=== PATIENT | female | born 1985 | race African-American/Black ===

== ENCOUNTER 2017-05-01 11:06 | Inpatient (IN) ==
[2017-05-01 15:21] LABS: MANUAL DIFF NEEDED? NO
[2017-05-01 15:25] LABS: BASO% 0.3 % (0.0-0.8); EOS# 0.02 X1000 (0.0-0.7); EOS% 0.3 % (0.0-10.0); HEMATOCRIT 39.1 % (37.0-47.0); HEMOGLOBIN 13.4 g/dL (12.0-16.0); LYMPH# 0.83 X1000 (1.2-3.4); LYMPH% 13.4 % (20.5-51.1); MCH 28.3 PG (27-31); MCHC 34.3 g/dL (33-37); MCV 82.5 FL (81-99); MONO# 0.73 X1000 (0.11-0.59); MONO% 11.8 % (1.7-9.3); MPV 11.1 FL (7.4-10.4); NEUT% 74.2 % (42.2-75.2); PLT 227 X1000 (130-400); RBC 4.74 XMIL (4.2-5.4)
[2017-05-01 15:31] LABS: INR 1.2; PROTIME 12.7 Seconds (9.2-11.7)
[2017-05-01 15:49] LABS: AGAP 17; ALBUMIN 3.6 g/dL (3.5-5.0); ALKALINE PHOSPHATASE 42 U/L (32-104); BUN 12 mg/dL (8-22); CALCIUM 9.3 mg/dL (8.8-10.2); CHLORIDE 97 mmol/L (98-107); CK PROFILE 63 U/L (24-173); COSMO 277; GOT 11 U/L (10-30); GPT 13 U/L (10-36); MAGNESIUM 2.1 mg/dL (1.5-2.7); POTASSIUM 3.9 mmol/L (3.5-5.1); SODIUM 138 mmol/L (136-145); TCO2 24 mmol/L (25-35); TOTAL BILIRUBIN 0.28 mg/dL (0.20-1.00); TOTAL PROTEIN 7.5 g/dL (6.3-8.3)
--- NOTE | 2017-05-01 16:26 | Diag Imaging Result Doc PS360 ---
CHEST-PORTABLE - 05/01/2017 INDICATION: ams TECHNIQUE: COMPARISON: 04/28/2017 FINDINGS: Stable critically low lung volumes with central crowding. Heart size is normal. No definite infiltrates. IMPRESSION: Critically low lung volumes. No change from prior. Electronically signed by Myron Trujillo 05/01/2017 4:24 PM
[2017-05-01] MEDS ORDERED: GEODON IM ONE (16:35)
[2017-05-01] MEDS ORDERED: STERILE WATER INJ. INJ ONE (16:35)
[2017-05-01] MEDS ORDERED: STERILE WATER INJ. INJ PRN (16:43)
[2017-05-01 18:28] LABS: URINE CULTURE NEEDED? NO; URINE MICRO REVIEW NEEDED? NO; URINE SOURCE CATH
--- NOTE | 2017-05-01 18:32 | Diag Imaging Result Doc PS360 ---
CT HEAD W/O CONTRAST - 05/01/2017 INDICATION: ams TECHNIQUE: A CT dose reduction protocol was used. COMPARISON: 04/28/2017 FINDINGS: The ventricles and sulci are normal in size and contour. No intracranial mass or hemorrhage. The skull is intact. The sinuses mastoids and middle ears are clear. IMPRESSION: Negative exam. Electronically signed by Myron Trujillo 05/01/2017 6:29 PM
[2017-05-01 18:35] LABS: BILIRUBIN URINE NEGATIVE (NEGATIVE); BLOOD URINE NEGATIVE (NEGATIVE); COLOR YELLOW; GLUCOSE URINE NEGATIVE (NEGATIVE); LEUKOCYTES URINE NEGATIVE (NEGATIVE); NITRITE URINE NEGATIVE (NEGATIVE); PROTEIN URINE NEGATIVE (NEGATIVE); SP GRAVITY URINE 1.009; TURBIDITY URINE CLEAR (CLEAR); UROBILINOGEN URINE NORMAL (NORMAL)
[2017-05-01 18:39] LABS: UR EPITHELIAL CELLS <10 /HPF (<10); URINE BACTERIA NEGATIVE /HPF; URINE RBC <10 /HPF (<10); URINE WBC <10 /HPF (<10)
[2017-05-01 18:48] LABS: UR AMPHETAMINES QUAL NONE DETECTED (NONE DETECT); UR BARBITUATES QUAL NONE DETECTED (NONE DETECT); UR BENZODIAZEPIN QUAL NONE DETECTED (NONE DETECT); UR CANNABINOIDS QUAL NONE DETECTED (NONE DETECT); UR COCAINE QUAL NONE DETECTED (NONE DETECT); UR METHADONE QUAL NONE DETECTED (NONE DETECT); UR OPIATES QUAL NONE DETECTED (NONE DETECT); UR OXYCODONE QUAL NONE DETECTED (NONE DETECT); UR PCP QUAL NONE DETECTED (NONE DETECT)
[2017-05-01] MEDS: GEODON IM PRN (20:25)
[2017-05-02] MEDS: GEODON IM PRN (00:47)
[2017-05-02] MEDS ORDERED: ATIVAN IM ONE (02:33)
[2017-05-02 06:37] LABS: MANUAL DIFF NEEDED? NO
[2017-05-02 06:44] LABS: BASO% 0.3 % (0.0-0.8); EOS# 0.09 X1000 (0.0-0.7); EOS% 2.4 % (0.0-10.0); HEMATOCRIT 33.8 % (37.0-47.0); HEMOGLOBIN 11.6 g/dL (12.0-16.0); MCH 28.2 PG (27-31); MCHC 34.3 g/dL (33-37); MCV 82.2 FL (81-99); MONO# 0.52 X1000 (0.11-0.59); MONO% 14.1 % (1.7-9.3); MPV 11.4 FL (7.4-10.4); NEUT% 64.2 % (42.2-75.2); PLT 211 X1000 (130-400); RBC 4.11 XMIL (4.2-5.4)
[2017-05-02 07:11] LABS: AGAP 11; BUN 10 mg/dL (8-22); CALCIUM 9.5 mg/dL (8.8-10.2); CHLORIDE 100 mmol/L (98-107); COSMO 276; POTASSIUM 2.8 mmol/L (3.5-5.1); SODIUM 138 mmol/L (136-145); TCO2 27 mmol/L (25-35)
[2017-05-02] MEDS ORDERED: LOVENOX SUBQ SCH (09:00)
[2017-05-02] MEDS ORDERED: HALDOL IV ONE (09:42)
[2017-05-02] MEDS ORDERED: HALDOL IM PRN (10:18)
[2017-05-02] MEDS ORDERED: HALDOL IM ONE (10:20)
[2017-05-02] MEDS ORDERED: EUCERIN LOTION TOP PRN (10:41)
[2017-05-02 12:05] VITALS: BP 128/79
[2017-05-02] MEDS ORDERED: AMITIZA PO ONE (12:08)
[2017-05-02] MEDS ORDERED: DEPAKOTE ER PO ONE (12:08)
[2017-05-02] MEDS ORDERED: PRILOSEC PO ONE (12:09)
[2017-05-02] MEDS ORDERED: PROZAC PO ONE (12:09)
[2017-05-02] MEDS ORDERED: SYNTHROID PO ONE (12:10)
[2017-05-02] MEDS ORDERED: EUCERIN CREAM TOP PRN (12:33)
[2017-05-02] MEDS ORDERED: THORAZINE PO ONE (13:00)
[2017-05-02] MEDS ORDERED: NS 0 ML ONE (14:01)
[2017-05-02] MEDS ORDERED: LATUDA PO SCH (18:00)
[2017-05-02] MEDS ORDERED: THORAZINE PO SCH (21:00)
[2017-05-02] MEDS ORDERED: DESYREL PO SCH (21:00)
[2017-05-02] MEDS ORDERED: RISPERDAL PO SCH (21:00)
[2017-05-02] MEDS ORDERED: TOPAMAX PO SCH (21:00)
[2017-05-02] MEDS ORDERED: NEURONTIN PO SCH (21:00)
[2017-05-02] MEDS ORDERED: AMITIZA PO SCH (21:00)
[2017-05-02] MEDS ORDERED: DEPAKOTE ER PO SCH (21:00)
[2017-05-03] MEDS ORDERED: PRILOSEC PO SCH (07:00)
[2017-05-03] MEDS ORDERED: SYNTHROID PO SCH ×2 (09:00)
[2017-05-03] MEDS ORDERED: PROZAC PO SCH (09:00)
== END 2017-05-02 15:17 | disposition home or self-care (01) ==
LOC: DIRADM → OBSVTOIN 11:06 → SUATTDRO 11:06 → SUPCPDRO 11:06 → 4N 11:44
PROVIDERS: ATTEND Internal Medicine

== ENCOUNTER 2018-09-23 09:22 | Inpatient (IN) ==
[2018-09-23] MEDS ORDERED: DEPAKOTE PO ONE (09:39)
[2018-09-23 10:29] LABS: ESTIMATED GFR 57
[2018-09-23 10:32] LABS: ACETAMINOPHEN < 1.2 ug/mL (10-30); AGAP 19; BUN 10 mg/dL (8-22); CALCIUM 10.2 mg/dL (8.8-10.2); CHLORIDE 87 mmol/L (98-107); COSMO 245; CREATININE 1.1 mg/dL (0.5-0.9); GLUCOSE 106 mg/dL (70-104); POTASSIUM 3.4 mmol/L (3.5-5.1); SODIUM 122 mmol/L (136-145); TCO2 17 mmol/L (25-35)
[2018-09-23 10:33] LABS: BASO# 0.01 X1000 (0.0-0.2); BASO% 0.3 % (0.0-0.8); HEMATOCRIT 37.2 % (37.0-47.0); HEMOGLOBIN 13.1 g/dL (12.0-16.0); IMM GRAN# 0.01 X1000 (0.0-0.04); IMM GRAN% 0.3 % (0.0-0.5); LYMPH# 1.17 X1000 (1.2-3.4); LYMPH% 33.6 % (20.5-51.1); MCH 28.7 PG (27-31); MCHC 35.2 g/dL (33-37); MCV 81.4 FL (81-99); MONO# 0.71 X1000 (0.11-0.59); MONO% 20.4 % (1.7-9.3); MPV 8.9 FL (7.4-10.4); NEUT# 1.58 X1000 (1.4-6.5); NEUT% 45.4 % (42.2-75.2); PLT 277 X1000 (130-400); RBC 4.57 XMIL (4.2-5.4); WBC 3.48 X1000 (4.8-10.8)
[2018-09-23 11:29] LABS: BILIRUBIN URINE NEGATIVE (NEGATIVE); BLOOD URINE TRACE (NEGATIVE); CLARITY SL. CLOUDY (CLEAR); COLOR YELLOW; GLUCOSE URINE NEGATIVE (NEGATIVE); KETONE URINE NEGATIVE (NEGATIVE); LEUKOCYTES URINE 1+ (NEGATIVE); NITRITE URINE NEGATIVE (NEGATIVE); PROTEIN URINE 1+(30 mg/dL) mg/dL (NEGATIVE); UROBILINOGEN URINE 1 mg/dL
[2018-09-23 11:33] LABS: URINE EPITHELIAL CELLS <10 /HPF (<10); URINE RBC <10 /HPF (<10); URINE SOURCE CLEAN CATCH; URINE WBC <10 /HPF (<10)
[2018-09-23 11:47] LABS: UR AMPHETAMINES QUAL NONE DETECTED (NONE DETECT); UR BARBITUATES QUAL NONE DETECTED (NONE DETECT); UR BENZODIAZEPIN QUAL NONE DETECTED (NONE DETECT); UR CANNABINOIDS QUAL NONE DETECTED (NONE DETECT); UR COCAINE QUAL NONE DETECTED (NONE DETECT); UR METHADONE QUAL NONE DETECTED (NONE DETECT); UR METHAMPHETAMINE QUAL NONE DETECTED (NONE DETECT); UR OPIATES QUAL NONE DETECTED (NONE DETECT); UR OXYCODONE QUAL NONE DETECTED (NONE DETECT); UR PCP QUAL NONE DETECTED (NONE DETECT); UR PROPOXYPHENE QUAL NONE DETECTED (NONE DETECT); UR TCA QUAL NONE DETECTED (NONE DETECT)
[2018-09-23] MEDS ORDERED: GEODON IM ONE ×3 (13:12→16:44)
[2018-09-23] MEDS ORDERED: STERILE WATER INJ. INJ ONE ×3 (13:12→16:44)
[2018-09-23 14:40] LABS: FREE T4 1.78 ng/dL (0.93-1.70); TSH 3.05 uIUmL (0.27-4.20)
[2018-09-23] MEDS ORDERED: ATIVAN IM ONE ×2 (15:07→15:13)
[2018-09-23] MEDS ORDERED: BENADRYL IM ONE (15:08)
--- NOTE | 2018-09-23 15:09 | PROVIDER DOCUMENTATION ---
This chart was entered by Dalila Dominguez Scribe, acting as scribe for Ivan Oliver MD. HPI-Psychological Disorder - General Chief Complaint: Psych Stated Complaint: psych Time Seen by Provider: 09/23/18 09:26 Source: patient, other (staff from [facility] and roommate) Unable to obtain history due to:: other (MR pt) Allergies/Adverse Reactions: Patient Allergies Allergy/AdvReac Type Severity Reaction Status Date / Time Penicillins Allergy Unknown Verified 02/21/16 12:35 Home Medications: Home Medication List Medication Instructions Recorded Confirmed Last Taken Type Desmopressin [Ddavp] 0.3 mg PO BID 08/14/15 05/02/17 04/28/17 07:00 History Divalproex E.r. [Depakote ER] 500 mg PO BID 08/14/15 05/02/17 04/28/17 07:00 History Fluoxetine HCl [Prozac] 20 mg PO DAILY 08/14/15 05/02/17 08/25/15 07:00 History Lanolin/Mineral Oil [Eucerin 1 applicatn TOP DAILY PRN 08/14/15 05/02/17 21:00 History Lotion] Lurasidone [Latuda] 60 mg PO HS 08/14/15 05/01/17 04/27/17 21:00 History Medroxyprogesterone Acetate 150 mg IM DIRECTED 08/14/15 05/01/17 08/25/15 07: 00 History [Depo-Provera] Ondansetron [Zofran] 4 mg PO Q6H PRN PRN #20 tablet 08/14/15 05/02/17 08/25/15 07:00 Rx Risperidone [Risperdal] 2 mg PO QHS 08/14/15 05/01/17 04/27/17 21:00 History Topiramate [Topamax] 200 mg PO HS 08/14/15 05/01/17 04/27/17 21:00 History Omeprazole 40 mg PO DAILY 08/26/15 05/02/17 08/26/15 07:00 History Chlorpromazine HCl 100 mg PO BID 05/01/17 05/02/17 Unknown History Cholecalciferol (Vit D3) [Vitamin 5,000 units PO DIRECTED 05/01/17 05/01/17 Unknown History D] Desmopressin Acetate 0.2 mg PO BID 05/01/17 05/02/17 Unknown History Fluticasone 50 Mcg Nasal [place] 2 spray PRASANNA BID 05/01/17 05/02/17 Unknown History [Flonase] Gabapentin 100 mg PO QHS 05/01/17 05/01/17 Unknown History Lubiprostone [Amitiza] 8 mcg PO BID 05/01/17 05/02/17 Unknown History Metformin [Glucophage] 1,000 mg PO BID 05/01/17 05/02/17 Unknown History Trazodone [Desyrel] 50 mg PO QHS 05/01/17 05/02/17 Unknown History Levothyroxine [Synthroid] 88 microgm PO DAILY tablet 05/02/17 Unknown Rx - History of Present Illness-Psych Nature of Presenting Problem: 33 yobf presents to the ed via ems for increased aggression toward roomate and staff in [facility]. pt has also been defecating and urinating on furniture and floor. pt had medication changed and was taking off her depakote and then sx began and has worsened. pt does not answer questions when asked and is a MR pt. pt has [facility] staff and roommate at bedside Onset/Duration: reports: other (2 weeks) Timing: reports: intermittent Severity: reports: moderate Situational problems related to:: reports: other (change of medications) Psychiatric Complaints: reports: agitated, hostile, homicidal thoughts (toward roommate) Substance Use: reports: none/never Previous psych related hospitalizations?: Yes Patient arrived by:: EMS called by spouse/family (called by staff at [facility]) Similar Symptoms Previously?: Yes Recently seen or treated by another doctor?: Yes (saw dr to change medications 2 weeks prior) Review of Systems - Adult - REVIEW OF SYSTEMS - ADULT ROS:: hx by roommate and [facility] staff Constitutional: denies: chills, fever Eyes: reports: no symptoms reported Ears, Nose, Mouth & Throat: reports: no symptoms reported Cardiovascular: denies: chest pain, palpitations Respiratory: reports: no symptoms reported Gastrointestinal: denies: abdominal pain, diarrhea, nausea, vomiting Genitourinary: reports: no symptoms reported Musculoskeletal: reports: no symptoms reported Integumentary: reports: no symptoms reported Neurological: denies: dizziness/vertigo, seizure, tremors Psychiatric: reports: see HPI, other (aggression toward staff and roommate) Endocrine: reports: no symptoms reported Hematologic/Lymphatic: reports: no symptoms reported Allergic/Immunologic: reports: no symptoms reported All Other Systems: Reviewed and Negative Past History - Adult - PAST MEDICAL HISTORY-ADULT Review of Records: reports: Old Records Reviewed, Nursing Assessment Review, Medications Reviewed, Social history reviewed & non-contributory. Major Childhood Illnesses: reports: denies history Cardiovascular: reports: denies history Respiratory: reports: denies history Gastrointestinal: reports: GERD Obstetrical/Gynecological: reports: denies history Genitourinary: reports: denies history Musculoskeletal: reports: denies history Neurological: reports: cognitive dysfunction, Seizures/Epilepsy Psychiatric: reports: bipolar, other (schizo-affective) Endocrine/Immune: reports: Diabetes, thyroid disorder Diabetes Type: Type 2 Other Conditions: reports: denies history - PRIOR SURGERIES/PROCEDURES Surgical/Procedure History: reports: none - IMMUNIZATION STATUS Childhood Immunizations: See Nurse Assessment Flu Vaccine: See Nurse Assessment - FAMILY HISTORY Family History: reviewed, not pertinent - SOCIAL HISTORY Smoking: non-smoker Substance Use: none/never Living Situation: group Physical Exam-Psych Focus - Physical Exam-Psych Exam Limited by: pt is not cooperative with MR Initial Vital Signs Reviewed: Yes Appearance: appropriate appearance, neat, alert Neurological: alert, calm Behavior/Eye Contact/Speech: good eye contact, refused to answer. negative: cooperative Thoughts/Hallucinations: no apparent hallucination HENMT: moist mucous membranes, normal ENT inspection Neck: full range of motion, supple, normal inspection Respiratory: chest non-tender, lungs clear, normal breath sounds Cardiovascular: normal peripheral pulses, regular rate, rhythm Abdominal Exam: normal bowel sounds, non tender, soft Lymphatic: no adenopathy Back Exam: normal inspection, no CVA tenderness, no vertebral tenderness Extremity: normal range of motion, non-tender, normal inspection Integumentary: normal color, normal turgor, warm/dry Progress - PLAN OF CARE/RESULTS Progress/Plan/Lab Results: Vital Signs - 8 hr 09/23/18 09:26 09/23/18 14:29 Temperature 97.6 F 98.5 F Pulse Rate 91 H 107 H Respiratory Rate 20 20 Blood Pressure 148/112 160/107 O2 Sat by Pulse Oximetry 100 98 Laboratory Results - last 24 hr 0109/23/18 09/23/18 10:00 10:00 10:00 WBC RBC Hgb Hct MCV MCH MCHC RDW Std Deviation Plt Count MPV Immature Gran % (Auto) Neut % (Auto) Lymph % (Auto) Daw[place] % (Auto) Eos % (Auto) Baso % (Auto) Immature Gran # (Auto) Neut # (Auto) Lymph # (Auto) Dawes # (Auto) Eos # (Auto) Baso # (Auto) Sodium 122 L Potassium 3.4 L Chloride 87 L Carbon Dioxide 17 L Anion Gap 19 BUN 10 Creatinine 1.1 H Estimated GFR/1.73 m2 57 BUN/Creatinine Ratio 9 Glucose 106 H Calculated Osmolality 245 Calcium 10.2 TSH 3.05 Free T4 1.78 H Urine Source Urine Color Urine Clarity Urine pH Ur Specific [place] Urine Protein Urine Ketones Urine Blood Urine Nitrite Urine Bilirubin Urine Urobilinogen Urine Microscopic RBC Urine WBC Urine Microscopic WBC Ur Epithelial Cells Urine Glucose Salicylates < 3.00 L Urine Opiates Screen Ur Oxycodone Screen Urine Methadone Screen U Propoxyphene Qual Acetaminophen < 1.2 L Ur Barbituates Screen Ur Tricyclics Screen Ur Phencyclidine Scrn Ur Amphetamines Screen U Methamphetamines Scrn U Benzodiazepines Scrn Urine Cocaine Screen U Cannabinoids Screen 09/23/18 09/23/18 09/23/18 10:25 11:11 11:11 WBC 3.48 L RBC 4.57 Hgb 13.1 Hct 37.2 MCV 81.4 MCH 28.7 MCHC 35.2 RDW Std Deviation 12.0 Plt Count 277 MPV 8.9 Immature Gran % (Auto) 0.3 Neut % (Auto) 45.4 Lymph % (Auto) 33.6 Dawes % (Auto) 20.4 H Eos % (Auto) 0.0 Baso % (Auto) 0.3 Immature Gran # (Auto) 0.01 Neut # (Auto) 1.58 Lymph # (Auto) 1.17 L Dawes # (Auto) 0.71 H Eos # (Auto) 0.00 Baso # (Auto) 0.01 Sodium Potassium Chloride Carbon Dioxide Anion Gap BUN Creatinine Estimated GFR/1.73 m2 BUN/Creatinine Ratio Glucose Calculated Osmolality Calcium TSH Free T4 Urine Source CLEAN CATCH Urine Color YELLOW Urine Clarity SL. CLOUDY A Urine pH 5.0 Ur Specific [place] 1.030 Urine Protein 1+(30 mg/dL) A Urine Ketones NEGATIVE Urine Blood TRACE Urine Nitrite NEGATIVE Urine Bilirubin NEGATIVE Urine Urobilinogen 1 Urine Microscopic RBC <10 Urine WBC 1+ A Urine Microscopic WBC <10 Ur Epithelial Cells <10 Urine Glucose NEGATIVE Salicylates Urine Opiates Screen NONE DETECTED Ur Oxycodone Screen NONE DETECTED Urine Methadone Screen NONE DETECTED U Propoxyphene Qual NONE DETECTED Acetaminophen Ur Barbituates Screen NONE DETECTED Ur Tricyclics Screen NONE DETECTED Ur Phencyclidine Scrn NONE DETECTED Ur Amphetamines Screen NONE DETECTED U Methamphetamines Scrn NONE DETECTED U Benzodiazepines Scrn NONE DETECTED Urine Cocaine Screen NONE DETECTED U Cannabinoids Screen NONE DETECTED Orders Category Date Time Status Regular Diet Diet 09/23/18 14:03 Active ACETAMINOPHEN [TDM] Stat Lab 09/23/18 10:00 Completed BMP [BASIC METABOLIC PANEL] [CHEM] Stat Lab 09/23/18 10:00 Completed CBC WITH ELECTRONIC DIFF [HEME] Stat Lab 09/23/18 10:25 Completed FREE T4 Stat Lab 09/23/18 10:00 Completed SALICYLATES [TDM] Stat Lab 09/23/18 10:00 Completed TSH Stat Lab 09/23/18 10:[address] W/POSS RFLX CULT [URINALYSIS] Stat Lab 09/23/18 11:11 Completed URINE DRUG SCREEN PL Stat Lab 09/23/18 11:11 Completed Divalproex [Depakote] Med 09/23/18 09:39 Discontinued 1,000 mg PO NOW ONE Water, Sterile Inj [Sterile Water Inj] Med 09/23/18 13:12 Discontinued 1.2 ml INJ NOW ONE Water, Sterile Inj [Sterile Water Inj] Med 09/23/18 14:54 Discontinued 1.2 ml INJ NOW ONE Ziprasidone [Geodon] Med 09/23/18 13:12 Discontinued 10 mg IM NOW ONE Ziprasidone [Geodon] Med 09/23/18 14:54 Discontinued 10 mg IM NOW ONE Result Diagrams: 09/23/18 10:25 09/23/18 10:00 - REASSESSMENT Reassessment #1 Time Reassessed: 11:32 (pt is calm and resting in bed with [facility] caregiver at bedside) Status: improving Reassessment #2 Time Reassessed: 13:13 Status: unchanged (STILL AWAITING INITIAL PSYCH EVAL FROM [facility]. PT IS BORED, LOUD, DISRUPTIVE. HAS RECIEVED DEPAKOTE 1000MG . WILL ADD GEODON 10IM. I HAVE TRIED TO CONTACT DR PEÑLAOZA TWICE.) - CONSULTS/PCP/HOSPITALIST Notification #1 *Consult/PCP/Hospitalist*: daniela june Time Discussed: 13:37 Reason/Comments: pt is being screened Departure - Departure Date of Disposition Decision: 09/23/18 Time of Disposition Decision: 15:01 DIAGNOSIS: Altered mental status, unspecified, Psychomotor agitation, Hypothyroidism, Hyponatremia Disposition: ADMITTED INPATIENT 09 Certified Medical Emergency: Emergent Condition: Fair Referrals and Follow-Ups: Annemarie Kraus CRNP [Primary Care Provider] - - Critical Care Note This patient required my direct & personal management of CC.: Yes Total Time (mins): 40 Critical Care Statement: This patient required my direct personal management to treat or rule out processes, the absence of which, could potentiallly result in sudden, clinically significant life or limb threatening deterioration. Comments: AGITATION AND UNSAFE TO SELF AND OTHERS WITHOUT SUPERVISION. PT DECLINED BY DANIELA JUNE . TALKED TO DR MACHADO, HER PSYCHIATRIST. Attestation - Physician/ XIMENA Attestation Patient care was provided by Advanced Practice Provider:: No The physician spent face to face time with patient:: Yes Advanced Practice Provider documentation review:: Supervising physician onsite and consulted in the evaluation and care of this patient. The physician did have a face to face encounter with the patient. This chart was documented by the indicated scribe, (Dalila Dominguez Scribe) and accurately reflects the services I performed and decisions made by me, Ivan Oliver MD, as attested by the provider's signature.
[2018-09-23] MEDS ORDERED: STERILE WATER INJ. INJ PRN (15:50)
[2018-09-23] MEDS ORDERED: GEODON IM PRN ×2 (15:50→15:55)
[2018-09-23] MEDS ORDERED: ATIVAN ONE (16:50)
--- NOTE | 2018-09-23 17:10 | HISTORY AND PHYSICAL ---
PRIMARY CARE PHYSICIAN: ARASH Olsen. CHIEF COMPLAINT: Increased confusion and increased aggression. HISTORY OF PRESENTING ILLNESS: This is a 33-year-old female who presents to [facility] ER with staff from her senior living where she resides stating that she has had increased confusion and increased aggression towards her roommate and the staff in the senior living. Has been noted to be defecating and urinating on furniture and the floor. States that she had a recent medication change from her psychiatric physician, Dr. Chery, and was taken off of her Depakote and since that time her symptoms have worsened. She is noted to be screaming out, agitated, difficult to calm down while in the emergency room. She has received several doses of Geodon 10 mg IM x2 different doses, Ativan 1 mg IM. They did give her a 1000 mg p.o. of Depakote x1, Benadryl 50 mg IM x1. She is currently sitting in a chair in her room with staff at the side of her chair. She has some screaming outburst occasionally but has tremendously calmed down. Her workup in the emergency room showed a sodium of 122. She also is noted to have a TSH of 3.05, but her free T4 is 1.78. Urinalysis was negative. Urine drug screen was negative. I did speak with Dr. Chery personally. He states that she was never on Depakote and that he recommends correcting her sodium, stopping her Latuda at this time, and continuing her Saphris 10 mg b.i.d. We do need to verify her home medications before I can address those, but I will have nursing to update and confirm her home medications. She will be admitted to the intensive care unit for further evaluation and treatment. PAST MEDICAL HISTORY: GERD, seizures, bipolar schizoaffective, diabetes type 2, hypothyroidism, and intellectual disability. PAST SURGICAL HISTORY: None. FAMILY HISTORY: Reviewed and noncontributory. SOCIAL HISTORY: She currently lives in a senior living. Denies any tobacco, alcohol, or illicit drug use. ALLERGIES: Penicillin. HOME MEDICATIONS: We will need to obtain a current list and then restart as appropriate after reviewed. Placed order for nursing to update and confirm home medications. LABORATORY DATA: Showed a white blood cell count of 3.48, hemoglobin of 13.1, hematocrit 37.2, platelets 277,000. Sodium 122, potassium 3.4, chloride 87, CO2 17, BUN of 10, creatinine 1.1, glucose 106. TSH of 3.05 with a free T4 of 1.78. Urinalysis was negative. Urine drug screen was negative. Salicylate level less than 3. Acetaminophen level less than 1.2. REVIEW OF SYSTEMS: Unable to obtain from patient. PHYSICAL EXAMINATION: VITAL SIGNS: On arrival she had a temperature of 97.6 degrees, pulse 91, respirations 20, blood pressure was 148/112, saturating 100% on room air. Currently blood pressure is 160/107. GENERAL: This is a 33-year-old female who is sitting in a chair in the emergency room, unable to answer all questions appropriately. Does scream out occasionally during assessment, but easily calmed down by senior living staff member. HEENT: Normocephalic, atraumatic. Normal ENT inspection. Oropharynx and nares are clear. Eyes: Pupils are equal, round, reactive to light and accommodation. Extraocular movements are intact. NECK: Normal inspection. Normal range of motion. LUNGS: Clear to auscultation bilaterally with equal lung expansion and chest wall movement. HEART: With regular rate and rhythm. No murmurs, rubs, or gallops. ABDOMEN: Soft, nontender, nondistended. Bowel sounds are present x4 quadrants. MUSCULOSKELETAL: She has 5/5 strength x4 extremities. NEUROLOGICAL: The cranial nerves 2-12 appear grossly intact. ASSESSMENT: 1. Hyponatremia. 2. Psychosis. 3. Diabetes type 2. 4. Hypothyroidism. PLAN: She will be admitted to the intensive care unit. Placed on telemetry. Will place on normal saline at 75 mL an hour. We will check a BMP q.6 hours x4 sets to start with. We will give her Geodon 10 mg IM q.6 hours p.r.n. We will have nursing to update and confirm and once we do that, we will stop her Latuda. We will continue her Saphris 10 mg b.i.d. Once she is medically stable and her sodium has returned to normal, we will consult Marianela Singleton if symptoms continue and psychosis does not improve. Further orders after being seen by attending. Dictated by ARASH Palm for Raul Mayorga MD cc: ARASH Palm MD Anna M. Dumas, CRNP
[2018-09-23] MEDS ORDERED: PHENOBARBITAL IV PRN (17:44)
[2018-09-23] MEDS ORDERED: ZOFRAN IV PRN (17:44)
[2018-09-23] MEDS ORDERED: TYLENOL PO PRN (17:44)
--- NOTE | 2018-09-23 18:39 | HISTORY AND PHYSICAL ---
The patient has a history of severe mental illness, I would say bipolar, but she also has intellectual impairment. She is in a correction. She came in because of agitation. I have examined her in the ER and she just steps out of her room. She yells at the staff, apparently has been defecating and urinating on the furniture. Her exam is really unremarkable, but she is really kind of inconsolable. Reportedly had been taken off her Depakote, but her primary psychiatrist stated that she had not been taken off the Depakote. She had ended up going to [place] last admission, possibly. She gets very agitated. Now her sodium is 122. Reportedly, she is on desmopressin and I do not think that will be very helpful in this situation, but that was in [id number], and was given for possible polydipsia. In any case the patient is admitted for symptomatic hyponatremia and we are trying get her calmed down and control her agitation. Her sodiums are usually fairly normal. She has never been below 130 at least since 2013. In any case, she will be admitted. We will get her sodium hopefully situated and we will see how she does. We will also give several medications for agitation if required. cc: Raul Mayorga MD MTDMelissa
[2018-09-23] MEDS: NS 1,000 ML IV SCH (20:42)
[2018-09-24 00:02] LABS: AGAP 16; BUN 10 mg/dL (8-22); CALCIUM 9.9 mg/dL (8.8-10.2); CHLORIDE 93 mmol/L (98-107); COSMO 260; CREATININE 0.9 mg/dL (0.5-0.9); ESTIMATED GFR > 60; GLUCOSE 71 mg/dL (70-104); POTASSIUM 3.7 mmol/L (3.5-5.1); SODIUM 131 mmol/L (136-145); TCO2 22 mmol/L (25-35)
[2018-09-24] MEDS: ATIVAN IV PRN ×4 (00:53→20:01)
[2018-09-24] MEDS: HALDOL IM PRN ×3 (02:08→20:02)
[2018-09-24 08:04] LABS: AGAP 12; BUN 11 mg/dL (8-22); CALCIUM 9.6 mg/dL (8.8-10.2); CHLORIDE 103 mmol/L (98-107); COSMO 276; CREATININE 0.9 mg/dL (0.5-0.9); ESTIMATED GFR > 60; GLUCOSE 77 mg/dL (70-104); POTASSIUM 3.6 mmol/L (3.5-5.1); SODIUM 139 mmol/L (136-145); TCO2 24 mmol/L (25-35)
[2018-09-24 08:06] LABS: BASO# 0.01 X1000 (0.0-0.2); BASO% 0.2 % (0.0-0.8); EOS# 0.03 X1000 (0.0-0.7); EOS% 0.7 % (0.0-10.0); HEMATOCRIT 39.2 % (37.0-47.0); HEMOGLOBIN 13.1 g/dL (12.0-16.0); IMM GRAN# 0.01 X1000 (0.0-0.04); IMM GRAN% 0.2 % (0.0-0.5); LYMPH# 1.04 X1000 (1.2-3.4); LYMPH% 24.5 % (20.5-51.1); MCHC 33.4 g/dL (33-37); MCV 83.8 FL (81-99); MONO# 0.92 X1000 (0.11-0.59); MONO% 21.7 % (1.7-9.3); MPV 9.1 FL (7.4-10.4); NEUT# 2.23 X1000 (1.4-6.5); NEUT% 52.7 % (42.2-75.2); PLT 284 X1000 (130-400); RBC 4.68 XMIL (4.2-5.4); RDW 12.4 % (11.5-14.5); WBC 4.24 X1000 (4.8-10.8)
[2018-09-24] MEDS: NS 1,000 ML IV SCH (08:50)
[2018-09-24 09:13] LABS: LYMPHS 15 % (21-51); MONO 9 % (1-9); SEGS 76 % (42-75)
[2018-09-24 09:14] LABS: ANISOCYTOSIS 1+
[2018-09-24] MEDS ORDERED: EUCERIN LOTION TOP PRN (09:59)
[2018-09-24] MEDS ORDERED: DEPO-PROVERA IM SCH (10:00)
[2018-09-24] MEDS ORDERED: SAPHRIS SL ONE (10:11)
[2018-09-24] MEDS ORDERED: DEPAKOTE PO ONE (10:12)
[2018-09-24] MEDS ORDERED: CARMEX LIP BALM TOP PRN (10:26)
--- NOTE | 2018-09-24 10:38 | PROGRESS NOTE ---
DATE: 09/24/2018 SUBJECTIVE: She is much more calm today. She is still talking very rapidly, but overall she is doing pretty well. Her sodium is corrected, but probably corrected a little too quickly, but she is much improved. OBJECTIVE: Blood pressure 123/80, heart rate 114, respiratory rate of 17, and temperature 98.8 degrees, and 100% on room air.Cardiovascular: Regular rate and rhythm. Pulmonary: Bilateral breath sounds. Clear to auscultation. GI: Soft, nontender, and nondistended. Bowel sounds are positive. LABORATORY DATA: Sodium most recently is 139, and was 122 yesterday. Rest of her labs look okay. PROBLEM LIST: 1. Hyponatremia. I think this may be drug related because for some reason she is on desmopressin. I am not sure why she is getting that and hydrochlorothiazide at 2 different doses so I think we need to stop both those medications because they are probably contributing to her hyponatremia. Of course, it could be related to other issues. We will check her urine electrolytes and get a better potential etiology there but overall she has improved. 2. Bipolar disorder in the setting of intellectual impairment. She seems less agitated now. Hopefully, maybe just correcting her electrolytes will help. I do think she needs inpatient psychiatric evaluation. [facility] cannot manage her because of her IQ. We are going to look at local places and not local places potentially for placement. 3. Disposition: We are just awaiting psychiatric evaluation and then continue from that standpoint. Her Synthroid dosing is a bit on the high side so I am going to adjust that down and see how she does. cc: Raul Mayorga MD
[2018-09-24 10:41] LABS: AGAP 13; BUN 10 mg/dL (8-22); CALCIUM 9.5 mg/dL (8.8-10.2); CHLORIDE 101 mmol/L (98-107); COSMO 274; CREATININE 0.9 mg/dL (0.5-0.9); ESTIMATED GFR > 60; GLUCOSE 159 mg/dL (70-104); POTASSIUM 3.5 mmol/L (3.5-5.1); SODIUM 136 mmol/L (136-145); TCO2 22 mmol/L (25-35)
[2018-09-24] MEDS ORDERED: BLISTEX MEDICATED BERRY LIP BALM TOP PRN (11:00)
[2018-09-24] MEDS: GLUCOPHAGE PO SCH ×2 (11:00→17:29)
[2018-09-24] MEDS: AMITIZA PO SCH ×2 (11:01→20:02)
[2018-09-24] MEDS: D5 1/2 NS 1,000 ML IV SCH ×2 (11:05→23:42)
[2018-09-24] MEDS: HUMULIN R (PARKWAY) SUBQ SCH ×3 (12:07→23:42)
[2018-09-24 16:31] LABS: AGAP 14; BUN 9 mg/dL (8-22); CALCIUM 9.1 mg/dL (8.8-10.2); CHLORIDE 102 mmol/L (98-107); COSMO 275; CREATININE 0.8 mg/dL (0.5-0.9); ESTIMATED GFR > 60; GLUCOSE 139 mg/dL (70-104); POTASSIUM 3.7 mmol/L (3.5-5.1); SODIUM 137 mmol/L (136-145); TCO2 21 mmol/L (25-35)
[2018-09-24] MEDS: DESYREL PO SCH (20:02)
[2018-09-24] MEDS: SAPHRIS SL SCH (20:02)
[2018-09-24] MEDS: NEURONTIN PO SCH (20:02)
[2018-09-24] MEDS: TOPAMAX PO SCH (20:02)
[2018-09-24] MEDS: DEPAKOTE ER PO SCH (20:02)
[2018-09-25] MEDS: ATIVAN IV PRN ×3 (03:23→19:54)
[2018-09-25] MEDS: HUMULIN R (PARKWAY) SUBQ SCH ×4 (06:26→20:08)
[2018-09-25 06:38] LABS: BASO# 0.02 X1000 (0.0-0.2); BASO% 0.5 % (0.0-0.8); EOS# 0.04 X1000 (0.0-0.7); HEMATOCRIT 37.2 % (37.0-47.0); HEMOGLOBIN 12.2 g/dL (12.0-16.0); LYMPH# 1.28 X1000 (1.2-3.4); LYMPH% 33.4 % (20.5-51.1); MCH 28.1 PG (27-31); MCHC 32.8 g/dL (33-37); MCV 85.7 FL (81-99); MONO% 15.7 % (1.7-9.3); MPV 9.3 FL (7.4-10.4); NEUT# 1.89 X1000 (1.4-6.5); NEUT% 49.4 % (42.2-75.2); PLT 269 X1000 (130-400); RBC 4.34 XMIL (4.2-5.4); RDW 12.5 % (11.5-14.5); WBC 3.83 X1000 (4.8-10.8)
[2018-09-25] MEDS: SYNTHROID PO SCH (06:38)
[2018-09-25 06:45] LABS: AGAP 11; BUN 8 mg/dL (8-22); CALCIUM 9.1 mg/dL (8.8-10.2); CHLORIDE 103 mmol/L (98-107); COSMO 271; CREATININE 0.8 mg/dL (0.5-0.9); ESTIMATED GFR > 60; GLUCOSE 106 mg/dL (70-104); POTASSIUM 3.7 mmol/L (3.5-5.1); SODIUM 136 mmol/L (136-145); TCO2 23 mmol/L (25-35)
[2018-09-25] MEDS ORDERED: SYNTHROID PO SCH (07:00)
[2018-09-25] MEDS: SAPHRIS SL SCH ×2 (08:24→20:05)
[2018-09-25] MEDS: GLUCOPHAGE PO SCH ×2 (08:24→16:39)
[2018-09-25] MEDS: DEPAKOTE ER PO SCH ×2 (08:24→20:05)
[2018-09-25] MEDS: AMITIZA PO SCH ×2 (09:17→20:05)
[2018-09-25] MEDS: D5 1/2 NS 1,000 ML IV SCH ×2 (12:37→15:30)
[2018-09-25] MEDS: LOPRESSOR PO SCH ×2 (16:15→19:55)
[2018-09-25] MEDS: HALDOL IM PRN (19:55)
[2018-09-25] MEDS: NEURONTIN PO SCH (20:05)
[2018-09-25] MEDS: DESYREL PO SCH (20:05)
[2018-09-25] MEDS: TOPAMAX PO SCH (20:05)
[2018-09-25] MEDS ORDERED: LATUDA PO SCH (21:00)
--- NOTE | 2018-09-25 23:20 | PROGRESS NOTE ---
DATE: 09/25/2018 SUBJECTIVE: Patient has no focal complaints. She is resting but she still gets very agitated according to nursing staff. Her mental status is still not much improved. Patient has no major complaints. OBJECTIVE DATA: Blood pressure is 122/92, heart rate of 119, temperature was 97.9 degrees, respiratory rate of 22, 100% saturation on room air.Cardiovascular: Regular rate and rhythm. Pulmonary: Bilateral breath sounds clear to auscultation. GI: Was soft, nontender, nondistended. Bowel sounds are positive. Extremities: No clubbing or cyanosis. Lymphatic: No peripheral edema. Neurological: Nonfocal. LABORATORY DATA: Her white count is 3.8, hemoglobin and hematocrit 12 and 37, platelets 269,000. Basic was normal. PROBLEMS: 1. Hyponatremia I think related to medications, hydrochlorothiazide and desmopressin, but her sodium has corrected and is fine. We will continue to monitor. Her urine sodium was very low. 2. Bipolar disorder type 1 with poor control. She is currently on Saphris and Depakote, which I think had recently been stopped. She is also on Topamax. She is not on Lamictal. May try to touch base with Psychiatry about her, they will not be able to handle her close by. She also was on Latuda which I think they stopped but I am not quite sure, in any case patient is still agitated. We are still looking for placement, because of her intellectual impairment we are having some difficulties. Disposition is pending clinical status. We will continue to follow. cc: Raul Mayorga MD
[2018-09-26] MEDS: LOPRESSOR PO SCH ×4 (02:30→20:41)
[2018-09-26] MEDS: SYNTHROID PO SCH (06:45)
[2018-09-26] MEDS: HUMULIN R (PARKWAY) SUBQ SCH ×3 (06:47→20:39)
[2018-09-26] MEDS: D5 1/2 NS 1,000 ML IV SCH (06:48)
[2018-09-26 07:39] LABS: AGAP 11; BUN 12 mg/dL (8-22); CHLORIDE 106 mmol/L (98-107); COSMO 275; CREATININE 0.8 mg/dL (0.5-0.9); ESTIMATED GFR > 60; GLUCOSE 116 mg/dL (70-104); POTASSIUM 4.4 mmol/L (3.5-5.1); SODIUM 137 mmol/L (136-145); TCO2 21 mmol/L (25-35)
[2018-09-26] MEDS: DEPAKOTE ER PO SCH ×2 (09:22→20:40)
[2018-09-26] MEDS: AMITIZA PO SCH ×2 (09:22→20:40)
[2018-09-26] MEDS: SAPHRIS SL SCH ×2 (09:22→20:41)
[2018-09-26] MEDS: GLUCOPHAGE PO SCH ×2 (09:22→18:27)
[2018-09-26] MEDS ORDERED: ZYPREXA ZYDIS PO PRN (13:33)
--- NOTE | 2018-09-26 15:34 | PROGRESS NOTE ---
DATE: 09/26/2018 SUBJECTIVE: Patient has no focal complaints. OBJECTIVE: Blood pressure 126/81, heart rate of 90, respiratory rate 22, temperature 98.2 degrees and 98% on room air.Cardiovascular: Regular rate and rhythm. Pulmonary: Bilateral breath sounds. Clear to auscultation. GI: Soft, nontender, and nondistended. Bowel sounds are positive. LABORATORY DATA: White count. We do not have any new data except sodium is 137 , and Looks fine. PROBLEM LIST: 1. Hyponatremia likely related to thiazides and desmopressin that seems improved. She is back to normal. 2. Bipolar. I think it is schizoaffective disorder really. She is on Saphris, Depakote, and Topamax. I talked to her primary psychiatrist. He recommended stopping her Latuda and adding Zyprexa twice a day as needed, and we will see how she does. She has been overall improved, but I am not sure if she will not still need some issues there so we will see how things are going. DISPOSITION: Waiting on psychiatric placement, but becausepaula has been relatively stable, we will continue to follow. cc: Raul Mayorga MD [facility]
[2018-09-26] MEDS: NEURONTIN PO SCH (20:40)
[2018-09-26] MEDS: DESYREL PO SCH (20:40)
[2018-09-26] MEDS: TOPAMAX PO SCH (20:41)
[2018-09-27] MEDS: LOPRESSOR PO SCH ×4 (01:18→21:03)
[2018-09-27] MEDS ORDERED: ZYPREXA ZYDIS PO PRN (05:50)
[2018-09-27] MEDS: HUMULIN R (PARKWAY) SUBQ SCH ×4 (06:12→20:52)
[2018-09-27] MEDS: SYNTHROID PO SCH (06:28)
[2018-09-27 07:33] LABS: AGAP 11; BUN 12 mg/dL (8-22); CHLORIDE 110 mmol/L (98-107); COSMO 278; CREATININE 0.7 mg/dL (0.5-0.9); ESTIMATED GFR > 60; GLUCOSE 119 mg/dL (70-104); POTASSIUM 4.9 mmol/L (3.5-5.1); SODIUM 139 mmol/L (136-145); TCO2 19 mmol/L (25-35)
[2018-09-27] MEDS: GLUCOPHAGE PO SCH ×2 (08:10→18:27)
[2018-09-27] MEDS: AMITIZA PO SCH ×2 (08:10→18:27)
[2018-09-27] MEDS: DEPAKOTE ER PO SCH ×2 (10:12→21:03)
[2018-09-27] MEDS: SAPHRIS SL SCH ×2 (10:12→21:03)
[2018-09-27] MEDS: DESYREL PO SCH (21:03)
[2018-09-27] MEDS: TOPAMAX PO SCH (21:03)
[2018-09-27] MEDS: NEURONTIN PO SCH (21:03)
--- NOTE | 2018-09-27 23:42 | PROGRESS NOTE ---
DATE: 09/27/2018 SUBJECTIVE: Patient has no new complaints today. PHYSICAL EXAMINATION: Vital Signs: Reviewed. She is awake, alert, oriented. Heart rates in the 90s, respiratory rate 20s, blood pressure stable. HEENT: Normocephalic. Neck: Supple. Cardiovascular: Regular rate. Chest: Clear, nonlabored. Abdomen: Soft, nondistended. Extremities: Moves all extremities. ASSESSMENT AND PLAN: 1. Hyponatremia, resolved. 2. Bipolar. We will continue Saphris, Depakote, and Topamax. These, along with her thiazide diuretics, may have contributed or caused her hypernatremia. We will continue to ask Psychiatry for assistance. 3. Further orders as needed. cc: MD Raul Rueda MD
[2018-09-28] MEDS: LOPRESSOR PO SCH ×4 (02:26→21:36)
[2018-09-28] MEDS: HUMULIN R (PARKWAY) SUBQ SCH ×4 (06:14→20:35)
[2018-09-28] MEDS: SYNTHROID PO SCH (06:24)
[2018-09-28 08:04] LABS: AGAP 8; BUN 11 mg/dL (8-22); CHLORIDE 107 mmol/L (98-107); COSMO 269; CREATININE 0.7 mg/dL (0.5-0.9); ESTIMATED GFR > 60; GLUCOSE 91 mg/dL (70-104); POTASSIUM 4.8 mmol/L (3.5-5.1); SODIUM 135 mmol/L (136-145); TCO2 21 mmol/L (25-35)
[2018-09-28] MEDS: AMITIZA PO SCH ×2 (08:15→16:41)
[2018-09-28] MEDS: GLUCOPHAGE PO SCH ×2 (08:15→16:41)
[2018-09-28] MEDS: SAPHRIS SL SCH ×2 (08:15→21:54)
[2018-09-28] MEDS: DEPAKOTE ER PO SCH ×2 (08:15→21:55)
[2018-09-28] MEDS: DESYREL PO SCH (21:54)
[2018-09-28] MEDS: NEURONTIN PO SCH (21:54)
[2018-09-28] MEDS: TOPAMAX PO SCH (21:56)
--- NOTE | 2018-09-28 23:55 | PROGRESS NOTE ---
DATE: 09/28/2018 SUBJECTIVE: The patient has no new complaints. States that she wants to go home. PHYSICAL EXAMINATION: Vital Signs: Temperature 98.6, pulse 54, respiratory rate 20, blood pressure 119/63. General: Patient is awake, currently in no distress. She is currently pleasant. HEENT: Normocephalic. Neck: Supple. Cardiovascular: Regular rate. Chest: Clear. Abdomen: Soft. ASSESSMENT: 1. Hyponatremia, resolved. 2. Bipolar, with schizoaffective disorder. Stable. PLAN: We will continue to await placement. Hopefully, she can discharge home over the next day or 2. cc: MD Raul Rueda MD
[2018-09-29] MEDS: LOPRESSOR PO SCH ×3 (01:33→13:26)
[2018-09-29] MEDS: HUMULIN R (PARKWAY) SUBQ SCH ×2 (06:24→11:12)
[2018-09-29] MEDS: SYNTHROID PO SCH (06:25)
[2018-09-29] MEDS: DEPAKOTE ER PO SCH (08:27)
[2018-09-29] MEDS: SAPHRIS SL SCH (08:27)
[2018-09-29] MEDS: GLUCOPHAGE PO SCH (08:27)
[2018-09-29] MEDS: AMITIZA PO SCH (08:28)
[2018-09-29 11:32] VITALS: BP 115/77
--- NOTE | 2018-09-30 04:34 | DISCHARGE SUMMARY ---
ADMISSION DATE: 09/23/2018 DISCHARGE DATE: 09/29/2018 DIAGNOSES: 1. Hyponatremia, resolved. 2. Bipolar with schizoaffective disorder, stable. HOSPITAL COURSE: Ms. Crane presented to the emergency room with increased confusion and increased aggression. She was found to be hyponatremic with a sodium of 122. She was monitored in ICU. We did trend sodium and give gentle hydration, and her sodium did return to normal in the first 24 hours and has remained within normal limits. It was found the patient was on hydrochlorothiazide and desmopressin. In fact, she was getting hydrochlorothiazide at 2 different doses. These medicines were held. She was very agitated at first, but through the days, she has been less agitated. She did require IM Haldol and IV Ativan on the first few days. DISCHARGE VITAL SIGNS: Blood pressure is 115/77 with a heart rate of 72, respirations 18, temperature is 98.7 degrees oral with room air sat 100%. PHYSICAL EXAM: Cardiovascular: Regular rate and rhythm. S1 and S2 are appreciated. She has no lower extremity edema. Peripheral pulses are palpable. Pulmonary: Breath sounds are clear with no increased work of breathing noted. Gastrointestinal: Abdomen is soft, nontender, and nondistended with bowel sounds in all 4 quadrants. DISCHARGE MEDICATIONS: Zyprexa 10 mg p.o. b.i.d., Lopressor 50 mg p.o. q.12 hours, Synthroid 50 mcg p.o. daily, Topamax 200 mg p.o. at bedtime, Glucophage 500 mg p.o. b.i.d., Latuda 60 mg p.o. at bedtime, Amitiza 24 mcg b.i.d., Depakote ER 500 mg p.o. b.i.d., Saphris 10 mg sublingual b.i.d., trazodone 50 mg p.o. at bedtime, gabapentin 100 mg p.o. at bedtime. FOLLOWUP: 1. She needs to call her psychiatrist and notify of the hospitalization and follow up as a instructed. 2. Her primary care provider, Annemarie Kraus, she is to follow up in 1 week. DISPOSITION: She is being discharged back to her nursing home in stable condition with family members present. TIME SPENT: This is a greater than 30 minute discharge. Dictated by ARASH Garcia for Chicho Camargo MD This chart was documented by, ARASH Garcia and accurately reflects the services performed, treatment plan and medical decisions as attested by the providers signature Chicho Camargo MD. cc: ARASH Garcia MD Alexis R. Penot, MD
--- NOTE | 2018-09-30 05:39 | DISCHARGE SUMMARY ---
ADMISSION DATE: 09/23/2018 DISCHARGE DATE: 09/29/2018 ADDENDUM: The patient was seen and examined by myself. Full note dictated and discussed with the nurse practitioner. The patient currently is stable and she will be discharged back to the halfway. We will continue her home medications. Sodium is resolved and is back to baseline. cc: MD Raul Rueda MD
== END 2018-09-29 15:56 | disposition home or self-care (01) | DRG 641 ==
LOC: P.ED 09:22 → SUATTDRO 18:06 → P.ICU 18:06 → P.MEDSURG 09-26 17:12
PROVIDERS: ADMIT Internal Medicine; ATTEND Family Medicine
CPT/HCPCS: 80048; 80104; 80196; 80301; 80305; 80307; 80324; 80329; 81001; 82003; 82948; 83935; 84300; 84439; 84443; 85025; 96372; 99285; A9270; G0431; G0434; G0477; G0480; G6038; G6039; J1200; J1630; J2060; J2560; J3486; J7030; XXXXX